=== PATIENT | female | born 1985 | race Caucasian/White ===

== ENCOUNTER 2018-06-22 20:38 | Emergency (ER) | payer OTHER ==
[~2018-06-22] VITALS: Ht 170.2 cm; Wt 176.9 kg
[~2018-06-22 20:38] MED LIST: AZITHROMYCIN 2250 MG PO; BANOPHEN25 M1 PO; CIPROFLOXACIN500 M1 PO; IBUPROFEN 800800 MG PO; LATUDA60 MG PO; LIORESAL 10 MG10 MG PO; MEDROLDOSEPACK PO; NITROFURANTOIN100 MG PO; NOHOMEMEDICATIONS; NORCO 5-325 TA1 EAC1 PO; NORCO 5-325 TA1 EACH PO; PROAIR HFA8.5 GM INH; PYRIDIUM200 MG PO; TRAMADOL 50 MG50 MG PO; XANAX XR2 MG PO; ZOLOFT100 MG PO; ZPAK PO
[2018-06-22] MEDS ORDERED: LISINOPRIL10 MG PO (20:52)
[2018-06-22] MEDS ORDERED: TRAZODONE HCL100 MG PO (20:53)
[2018-06-22] MEDS ORDERED: SPIRONOLACTONE25 M1 PO (20:53)
[2018-06-22] MEDS ORDERED: PAXIL CR25 MG PO (20:54)
[2018-06-22] MEDS ORDERED: ULTRAM 50MG TAB50 MG PO (21:51)
[2018-06-22 22:03] VITALS: BP 123/64
== END 2018-06-22 22:03 | disposition home or self-care (01) ==
LOC: M.ERS 20:38
DX: S93.492A Sprain of other ligament of left ankle, initial encounter (principal); F41.9 Anxiety disorder, unspecified; F31.9 Bipolar disorder, unspecified; Z88.8 Allergy status to other drugs, medicaments and biological substances; Z90.710 Acquired absence of both cervix and uterus; Z98.890 Other specified postprocedural states; Z90.89 Acquired absence of other organs; W18.49XA Other slipping, tripping and stumbling without falling, initial encounter; Y93.01 Activity, walking, marching and hiking; Y92.89 Other specified places as the place of occurrence of the external cause; Y99.8 Other external cause status

== ENCOUNTER 2019-02-26 08:27 | Emergency (ER) | payer OTHER ==
[~2019-02-26] VITALS: Ht 170.2 cm; Wt 161.0 kg
[~2019-02-26 08:27] MED LIST changes: +LISINOPRIL10 MG PO; +PAXIL CR25 MG PO; +SPIRONOLACTONE25 M1 PO; +TRAZODONE HCL100 MG PO; +ULTRAM 50MG TAB50 MG PO
[2019-02-26 09:39] LABS: ABSOLUTE BASOPHILS 0.1 thou/uL (0.0-0.2); ABSOLUTE EOSINOPHILS 0.1 thou/uL (0.0-0.7); ABSOLUTE LYMPHOCYTES 1.8 thou/uL (0.8-5.3); ABSOLUTE MONOCYTES 0.6 thou/uL (0.0-1.2); ABSOLUTE NEUTROPHILS 4.7 thou/uL (1.6-8.1); BASOPHILS 1.1 %; EOSINOPHILS 1.1 %; HEMATOCRIT 41.1 % (37.0-47.0); HEMOGLOBIN 13.8 gm/dL (12.0-15.0); LYMPHOCYTES 24.8 %; MCH 28.7 pg (26.0-34.0); MCHC 33.6 g/dL (28.0-37.0); MCV 85.5 fL (80.0-100.0); MONOCYTES 7.8 %; MPV 8.3 fl. (7.2-11.1); NUCLEATED RBCS 0 /100WBC; PLATELET COUNT* 277 thou/uL (150-400); POLYS 65.2 %; RBC 4.81 mil/uL (4.20-5.00); RDW-CV 12.8 % (10.5-14.5); WBC 7.2 thou/uL (4.0-11.0)
[2019-02-26 09:44] LABS: CALCIUM 9.4 mg/dL (8.5-10.1); CREATININE 0.8 mg/dL (0.6-1.3); POTASSIUM 4.2 mmol/L (3.5-5.1)
[2019-02-26 09:49] LABS: ALBUMIN 3.7 g/dL (3.4-5.0); TOTAL BILIRUBIN 0.3 mg/dL (<0.1-1.0); TOTAL PROTEIN 7.8 g/dL (6.4-8.2)
[2019-02-26 10:38] LABS: URINE BILIRUBIN NEGATIVE (Negative); URINE BLOOD NEGATIVE (Negative); URINE CLARITY CLEAR; URINE COLOR YELLOW; URINE GLUCOSE-RANDOM NEGATIVE (Negative); URINE KETONES 1+ (Negative); URINE LEUKOCYTES-REFLEX NEGATIVE (Negative); URINE NITRITE-REFLEX NEGATIVE (Negative); URINE PROTEIN NEGATIVE (Negative); URINE UROBILINOGEN 0.2 E.U./dl (0.2-1.0)
[2019-02-26] MEDS ORDERED: ZOFRAN ODT4 MG DISSOLVE (11:00)
[2019-02-26] MEDS ORDERED: NORCO 5-325 TA1 EAC1 PO (11:00)
[2019-02-26 11:30] VITALS: BP 107/62
== END 2019-02-26 11:31 | disposition home or self-care (01) ==
LOC: M.ERS 08:27
PROVIDERS: Emergency Medicine Emergency Medical Services
DX: R10.11 Right upper quadrant pain (principal); R10.13 Epigastric pain; R11.2 Nausea with vomiting, unspecified; F41.9 Anxiety disorder, unspecified; F31.9 Bipolar disorder, unspecified; Z90.710 Acquired absence of both cervix and uterus; Z98.890 Other specified postprocedural states; Z90.49 Acquired absence of other specified parts of digestive tract; Z98.51 Tubal ligation status; Z88.8 Allergy status to other drugs, medicaments and biological substances

== ENCOUNTER 2021-04-18 13:16 | Emergency (ER) | payer OTHER, MEDICAID ==
[~2021-04-18] VITALS: Ht 170.2 cm; Wt 178.7 kg
[~2021-04-18 13:16] MED LIST changes: +ZOFRAN ODT4 MG DISSOLVE
[2021-04-18] MEDS ORDERED: DOXYCYCLINE 10100 M2 PO (14:38)
[2021-04-18 14:46] VITALS: BP 175/76
== END 2021-04-18 14:47 | disposition home or self-care (01) ==
LOC: M.ERS 13:16
DX: L03.116 Cellulitis of left lower limb (principal); F41.9 Anxiety disorder, unspecified; F32.9 Major depressive disorder, single episode, unspecified; Z90.710 Acquired absence of both cervix and uterus; Z90.89 Acquired absence of other organs; Z98.51 Tubal ligation status; Z79.899 Other long term (current) drug therapy; Z88.8 Allergy status to other drugs, medicaments and biological substances